=== PATIENT | male | born 1990 | race Caucasian/White ===

== ENCOUNTER → 2020-10-02 15:12 | Outpatient (CLI) | payer BC, SELFPAY ==
--- NOTE | ~2020-10-02 | XR_ITS ---
EXAMINATION: XR chest 2V DATE: 10/02/2020 16:04 INDICATION: Fatigue TECHNIQUE: PA and lateral views of the chest were obtained. COMPARISON: Chest radiograph dated 07/22/2019 FINDINGS: The lungs remain clear with no focal airspace opacities, pulmonary edema, pleural effusion or pneumot horax. The cardiomediastinal silhouette is normal. Visualized bones and soft tissues are unremarkable . IMPRESSION: 1. Normal chest radiograph. Reviewed, dictated and finalized at location A. [employer] IMPRESSION: 1. Normal chest radiograph.
== END ==
PROVIDERS: PCP Family Medicine; Visit Provider Family Medicine
DX: R53.83 Other fatigue (principal)
CPT/HCPCS: 71046

== ENCOUNTER → 2021-03-27 15:03 | Outpatient (CLI) | payer BC, SELFPAY ==
--- NOTE | ~2021-03-27 | XR_ITS ---
EXAMINATION: XR cervical spine 4-5V EXAM DATE: 03/27/2021 15:47 INDICATION: Paresthesia. Pain, sensitivity enhance bilaterally. TECHNIQUE: Cervical spine frontal, lateral, submentovertex and open-mouth odontoid projections. The re is no prior study for comparison. FINDINGS: There is no evidence of acute cervical fracture. The odontoid process is intact. Pre-dens space is normal. Prevertebral soft tissue is normal. There are no soft tissue abnormalities identi fied. Vertebral body and disc heights are well-maintained. The vertebral bodies are aligned. Sara g apices are clear. IMPRESSION: 1. Normal cervical x-ray exam. Reviewed, dictated and finalized at location B.
== END ==
PROVIDERS: PCP Family Medicine; Visit Provider Family Medicine
DX: R20.2 Paresthesia of skin (principal)
CPT/HCPCS: 72050